=== PATIENT | female | born 1965 | race Caucasian/White ===

== ENCOUNTER 2017-07-31 09:40 | Observation (INO) ==
[~2017-07-31 09:40] MED LIST: Aminoglycoside Consult 1 EACH MC ONE
[2017-07-31 10:16] LABS: Basophils % 0.2 %; Eosinophils # 0.1 K/mcL (0.0-0.6); Eosinophils % 0.8 %; Hematocrit 46.3 % (35.3-44.9); Hemoglobin 15.2 g/dL (11.5-15.4); Immature Granulocytes % 0.5 % (0-4); Lymphocytes # 1.8 K/mcL (0.6-4.6); Lymphocytes % 20.8 %; Mean Corpuscular HGB Conc 32.8 g/dL (31.6-35.5); Mean Corpuscular Hemoglobin 29.9 pg (28.0-33.3); Mean Platelet Volume 9.5 fL (9.4-12.4); Monocytes # 0.6 K/mcL (0.0-1.3); Monocytes % 6.6 %; Platelet Count 207 K/mcL (140-400); Red Blood Count 5.09 M/mcL (3.82-4.97); Red Cell Distribution Width 13.9 % (11.5-14.5); Segmented Neutrophils % 71.1 %
[2017-07-31 10:55] LABS: Calcium 9.4 mg/dL (8.6-10.3); Carbon Dioxide 26 mEq/L (23-29); Chloride 104 mEq/L (98-107); Potassium 4.1 mEq/L (3.5-5.1); Sodium 137 mEq/L (136-145)
[2017-07-31 11:01] LABS: BUN/Creatinine Ratio 20 (6-26); Blood Urea Nitrogen 14 mg/dL (6-20); Glucose 136 mg/dL (70-105); Osmolality,Calculated 287 (280-300); eGFR For African Americans > 60 (> 60); eGFR For Non-African Americans > 60 (> 60)
--- NOTE | 2017-07-31 13:43 | Emergency Department Note ---
Disposition Clinical Impression: Costalchondritis, Cellulitis Disposition: Admitted As Inpatient Condition: Good Instructions: Angina (ED), Costochondritis (ED), Chest Wall Pain (ED), Cellulitis (ED) Referrals: Mary Jo Estrada MD [Primary Care Provider] - Forms: ED Satisfaction Letter Time of Disposition: 14:09 Chest Pain HPI - General Chief Complaint: ED Chest Pain Stated Complaint: CP,fever,"cellultitis" Time Seen by Provider: 07/31/17 12:12 Source: patient Limitations: no limitations Vital Signs Reviewed: Yes Nursing Notes Reviewed: Yes - History of Present Illness HPI Narrative: 52 yo F presents with 1 month intermittent sharp substernal chest pain and 1 day history of Panus cellulitis. Chest Pain is localized to midline between xyphoid and sternum. Pain does not radiate. Patient states that the pain happens "every once in awhile throughout the day" but nothing makes it worse or better. Patient denies SOB, dyspnea, orthopnea, PND, Extremity edema, diaphoresis or trauma to the chest. Patient states that the cellulitis on her abdomen started yesterday after she scratched it, and after a "spider bite" on the left of her abdomen. Patient admits to associated, fever, chills. Patient denies nausea, vomiting. Pt complaint: chest pain Onset (ago): month(s) (1) Duration: intermittent Onset: during rest Pain Location: substernal Severity: moderate Severity scale (1-10): 6 Quality: sharp Pain Radiation: none Improves with: nothing Worsens with: nothing Context: recent illness (states she has PNA that was treated w/ z-gerard), history of DVT/PE Associated symptoms: Reports: fever. Denies: nausea, vomiting, diaphoresis, dyspnea, sense of impending doom, syncope, palpitations, leg swelling - Related Data Home Medications Medication Instructions Recorded Confirmed Albuterol Sulfate [Albuterol 2 puff IH Q4HR PRN 09/19/16 09/19/16 Inhaler] Furosemide [Lasix] 20 mg PO DAILY 09/19/16 09/19/16 Gabapentin [Neurontin] 800 mg PO TID 09/19/16 09/19/16 GlipiZIDE [Glipizide Xl] 5 mg PO DAILY 09/19/16 09/19/16 Lisinopril [Zestril] 10 mg PO DAILY 09/19/16 09/19/16 Methocarbamol [Robaxin-750] 750 mg PO TID 09/19/16 09/19/16 OxyCODONE/APAP 5/325 [Percocet 1 each PO BID PRN 09/19/16 09/19/16 5/325 MG] Potassium Chloride [Klor-Con 10] 10 meq PO DAILY 09/19/16 09/19/16 Tramadol HCl [Ultram] 50 mg PO Q6H PRN 09/19/16 09/19/16 Allergies Allergy/AdvReac Type Severity Reaction Status Date / Time Cortisone AdvReac Vomiting Verified 07/31/17 09:46 latex AdvReac Itching Verified 07/31/17 09:46 metformin AdvReac Diarrhea Verified 07/31/17 09:46 All systems ED: reviewed and negative except as stated. Review of Systems: As Per HPI Chest Pain PMH - Past Medical History Medical history: Reports: diabetes, hypertension Surgical history: Reports: cholecystectomy, hysterectomy, LIANA/BSO Psychiatric history: Reports: no psych history - Social History Smoking Status: Current every day smoker Alcohol use: Reports: none Drug use: Reports: none Physical Exam - General Limitations: no limitations General appearance: alert, in no apparent distress - Chest Chest inspection: Present: normal inspection, symmetric chest wall rise, tenderness (midline between sternum and xiphoid) - Respiratory Respiratory exam: Present: normal lung sounds bilaterally - Cardiovascular Cardiovascular exam: Present: regular rate, normal rhythm, normal heart sounds. Absent: tachycardia, irregular rhythm, systolic murmur, diastolic murmur, rubs , gallop, clicks, JVD - Abdominal Exam Abdominal exam: Present: soft, normal bowel sounds, other (erythematous band across panus. laceration on left panus "spider bite"). Absent: tenderness, distention, guarding, rebound, Fajardo's sign, Rovsing's sign, tenderness at McBurney's Point - Neurological Exam Neurological exam: Present: alert, oriented X3 - Psychiatric Psychiatric exam: Present: normal affect, normal mood Course Course Narrative: Patient is comfortable laying in bed at this time, currently clinically and hemodynamically stable. EKG showed sinus rhythm and initial trops were negative. Patient denied active chest pain during exam. Patient started on IV vancomycin at this time, due to concerns for Oral abx's ability to penetrate into panus cellulitis. Will admit patient for IV abx. Vital Signs Temperature 98.3 F 07/31/17 09:42 Pulse Rate 101 07/31/17 09:42 Respiratory Rate 20 07/31/17 09:42 Blood Pressure 141/92 07/31/17 09:42 O2 Sat by Pulse Oximetry 95 07/31/17 09:42 Temperature 98.3 F 07/31/17 09:42 Pulse Rate 90 07/31/17 13:00 Respiratory Rate 18 07/31/17 13:00 Blood Pressure 136/87 07/31/17 13:00 O2 Sat by Pulse Oximetry 94 07/31/17 13:00 Oxygen Delivery Oxygen Delivery Room Air Chest Pain - MDM Narrative Medical decision making narrative: fevers and chills most likely from panus cellulitis. localized chest pain most likely from costochondritis (pain reproducible on palpation) vs unlikely from CAD (EKG Sinus rhythm and initial negative trop). Patient admitted for IV abx administration. - Differential Diagnosis Likely: costalchondritis, chest pain - Medical Records Medical records reviewed: Yes I reviewed the patient's medical records. - Lab Data Lab results reviewed: Yes I reviewed the patient's lab results. Result diagrams: 07/31/17 10:03 07/31/17 10:03 Lab Results 07/31/17 07/31/17 07/31/17 Range/Units 10:03 10:03 10:03 WBC 8.5 (4.3-11.1) K/mcL RBC 5.09 H (3.82-4.97) M/mcL Hgb 15.2 (11.5-15.4) g/dL Hct 46.3 H (35.3-44.9) % MCV 91.0 (83.0-100.0) fL MCH 29.9 (28.0-33.3) pg MCHC 32.8 (31.6-35.5) g/dL RDW 13.9 (11.5-14.5) % Plt Count 207 (140-400) K/mcL MPV 9.5 (9.4-12.4) fL Immature Gran % 0.5 (0-4) % Seg Neutrophils % 71.1 % Lymphocytes % 20.8 % Monocytes % 6.6 % Eosinophils % 0.8 % Basophils % 0.2 % Neutrophils # 6.0 (1.6-8.9) K/mcL Lymphocytes # 1.8 (0.6-4.6) K/mcL Monocytes # 0.6 (0.0-1.3) K/mcL Eosinophils # 0.1 (0.0-0.6) K/mcL Basophils # 0.0 (0.0-0.2) K/mcL Sodium 137 (136-145) mEq/L Potassium 4.1 (3.5-5.1) mEq/L Chloride 104 (98-107) mEq/L Carbon Dioxide 26 (23-29) mEq/L BUN 14 (6-20) mg/dL Creatinine 0.69 (0.60-1.20) mg/dL Est GFR ( Amer) > 60 (> 60) Est GFR (Non-Af Amer) > 60 (> 60) BUN/Creatinine Ratio 20 (6-26) Glucose 136 H (70-105) mg/dL Calculated Osmolality 287 (280-300) Lactic Acid 1.5 (0.5-2.2) mmol/L Calcium 9.4 (8.6-10.3) mg/dL Troponin I (< 0.04) ng/mL B-Natriuretic Peptide (Less than 100) pg/mL 07/31/17 07/31/17 Range/Units 10:03 10:03 WBC (4.3-11.1) K/mcL RBC (3.82-4.97) M/mcL Hgb (11.5-15.4) g/dL Hct (35.3-44.9) % MCV (83.0-100.0) fL MCH (28.0-33.3) pg MCHC (31.6-35.5) g/dL RDW (11.5-14.5) % Plt Count (140-400) K/mcL MPV (9.4-12.4) fL Immature Gran % (0-4) % Seg Neutrophils % % Lymphocytes % % Monocytes % % Eosinophils % % Basophils % % Neutrophils # (1.6-8.9) K/mcL Lymphocytes # (0.6-4.6) K/mcL Monocytes # (0.0-1.3) K/mcL Eosinophils # (0.0-0.6) K/mcL Basophils # (0.0-0.2) K/mcL Sodium (136-145) mEq/L Potassium (3.5-5.1) mEq/L Chloride (98-107) mEq/L Carbon Dioxide (23-29) mEq/L BUN (6-20) mg/dL Creatinine (0.60-1.20) mg/dL Est GFR ( Amer) (> 60) Est GFR (Non-Af Amer) (> 60) BUN/Creatinine Ratio (6-26) Glucose (70-105) mg/dL Calculated Osmolality (280-300) Lactic Acid (0.5-2.2) mmol/L Calcium (8.6-10.3) mg/dL Troponin I < 0.03 (< 0.04) ng/mL B-Natriuretic Peptide 15 (Less than 100) pg/mL - Radiology Data Radiology results reviewed: Yes I reviewed the patient's radiology results. - EKG Data EKG attestation: Yes I reviewed and interpreted this EKG. EKG shows normal: sinus rhythm Rate: normal Rhythm: NSR [place]/QRS: normal Heart Score - Score History: Slightly Suspicious EKG: Normal Age: 45-65 Risk Factors: Equal/Greater than 3 risk factor or history of atherosclerotic disease Troponin: 1-3x normal limit HEART Score Total: 4
--- NOTE | 2017-07-31 14:00 | Emergency Department Note ---
START Narrative - START START: I examined this patient and my medical decision-making was reviewed with the [employer]/PA/Advanced Practice Nurse/Resident Physician. I agree with the documented findings, disposition and treatment plan as described except to the extent set forth below. The patient has 2 main complaints in the first is abdominal panniculus cellulitis of that she will be started on intravenous vancomycin and admitted to the hospital. Labs reviewed. I did palpate the area and there is no crepitus or necrosis or ecchymosis or fluctuance. The second complaint is chest pain which has been going on for about one month and lasts for up to one hour at a time and she did have one hour of chest pain when I saw her today with initial troponin negative and this will be further evaluated as an inpatient. Did have some diaphoresis morning. No dyspnea. No exertional component. No pleuritic aspect or radiation to the back. Patient has been accepted for admission 1400 I did review the patient's EKG showed a sinus tachycardia with a rate of 100 without acute ischemic change. No evidence of arrhythmia. 1406 I did go back and see the patient initially was reluctant to stay and I did inform her of the importance based on the extensive cellulitis and need for intravenous IV antibiotics and we did start vancomycin as well as the chest pain which is intermittent will be further evaluated here in the hospital. 1516
[2017-07-31] MEDS ORDERED: Naloxone 0.4 MG/ML INJ IVP PRN (15:47)
[2017-07-31] MEDS ORDERED: Acetaminophen 325 MG TABLET PO PRN (15:47)
[2017-07-31] MEDS ORDERED: *HR* OxyCODONE/APAP 5/325 TABLET PO PRN (16:03)
[2017-07-31] MEDS ORDERED: *HR* Dextrose 50 % in Water (Syg) 50 ML SYRINGE IVP PRN (16:09)
[2017-07-31] MEDS ORDERED: D5% in Water 1,000 ML IVC PRN (16:09)
[2017-07-31] MEDS ORDERED: Dextrose Gel 15 GM/37.5 ML TUBE PO PRN ×2 (16:09)
[2017-07-31] MEDS ORDERED: GuaiFENesin/Dextromethorphan TABLET PO PRN (16:11)
[2017-07-31] MEDS ORDERED: Ipratropium/Albuterol Neb 3 ML IH PRN (16:12)
[2017-07-31] MEDS ORDERED: Aspirin Enteric Coated 325 MG Tablet PO STA (16:15)
[2017-07-31] MEDS ORDERED: Nicotine 14 MG PATCH.TD24 TD SCH (16:15)
[2017-07-31] MEDS ORDERED: Nitroglycerin 0.4 MG TAB.SUBL SL PRN (16:16)
--- NOTE | 2017-07-31 16:20 | Internal Med History&Physical ---
<GuanacoarianKwesi - Last Filed: 07/31/17 21:44> Date of Encounter: 07/31/17 Internal Medicine - H&P: HPI History of present illness: Ms. Cabrera is a 52 year old female Internal Medicine - H&P: Meds Gabapentin [Neurontin] 800 mg PO TID 09/19/16 [History] GlipiZIDE [Glipizide Xl] 5 mg PO DAILY 09/19/16 [History] Lisinopril [Zestril] 10 mg PO DAILY 09/19/16 [History] OxyCODONE/APAP 5/325 [Percocet 5/325 MG] 1 each PO BID PRN 09/19/16 [History] Cyclobenzaprine [Flexeril] 10 mg PO TID 07/31/17 [History] Spironolactone [Aldactone] 25 mg PO BID 07/31/17 [History] 3 Allergy/AdvReac Type Severity Reaction Status Date / Time Cortisone AdvReac Vomiting Verified 07/31/17 09:46 latex AdvReac Itching Verified 07/31/17 09:46 metformin AdvReac Diarrhea Verified 07/31/17 09:46 All Systems PM: A 10-system review of systems was performed and is negative for pertinent findings except as documented above in the HPI. - Constitutional Vitals: Temp Pulse Resp BP Pulse Ox 98.7 F 87 18 139/73 94 07/31/17 19:08 07/31/17 19:08 07/31/17 19:08 07/31/17 19:08 07/31/17 19:08 Internal Med - H&P Results - Labs CBC & Chem 7: 07/31/17 10:03 07/31/17 10:03 Labs: Cardiac Enzymes 07/31/17 Range/Units 17:54 Troponin I < 0.03 (< 0.04) ng/mL - Impressions ITS Impressions Abdomen/Pelvis CT 07/31/17 17:30 IMPRESSION: No soft tissue gas, fluid or abscess associated with the cellulitis. D/ / Adelso Bueno MD / Adelso Bueno MD Interpreting Provider: Adelso Bueno MD - Attending Attestation I have personally performed a face to face evaluation on this patient. I have reviewed and agree with the care plan. History and Exam by me shows: Patient presented with chest pain. On exam heart is regular is on S2. Lungs are clear. There is lower abdominal panniculitis and some dried up scabbed wounds. Plan: Transient troponin. Telemetry. Echocardiogram and stress test in the morning. IV vancomycin for panniculitis. Kwesi Granger MD <Jose M Sheridan - Last Filed: 07/31/17 21:51> Date of Encounter: 07/31/17 Time of Encounter: 15:00 Assessment and Plan (1) Chest pain Current visit: Yes Status: Acute Acute on chronic chest pain for the past month. Patient reports intermittent chest pain at rest and with exertion without alleviating or aggravating factors. Describes pain is centralized squeezing and chest with radiation to left arm. Patient had recent diagnosis 2 weeks of pneumonia and has residual cough. Completed OP therapy. Denies history of cardiac testing or issues. Hx of CAD in mother. Initial troponin <0.03. Trend x2. Echocardiogram ordered. Cardiac diet. Nothing by mouth at midnight for a.m. pharmacologic stress test. Will consider cardiology consult if echocardiogram, troponins, stress test results abnormal. Nitroglycerin when necessary. 80 mg Lipitor PO now. 325 mg aspirin now followed by 81 mg daily. Pt. instructed to take 81 mg EC aspirin daily post-discharge. EKG shows sinus tachycardia with low QRS voltage in precordial leads. CXR unremarkable. Supplemental O2 and SpO2 monitoring PRN. Falls/safety. Pt. discussed w/Dr. Granger who is in agreement w/plan of care. Pt. is high risk for further morbidity and cardiac event based on hx of chest pain for 1 month, family hx of CAD, current pannus cellulitis requiring IV abx, hx, and risk factors of HTN and current tobacco abuse. Inpatient. Qualifiers: Chest pain type: other chest pain Qualified Code(s): R07.89 - Other chest pain; R07.8 - Other chest pain (2) Cellulitis Current visit: Yes Status: Acute Acute pannus cellulitis for the past several days. Pt. states she changed detergents then noticed itching. Closed scab near umbilicus from scratching. Lower abdomen is erythematous, edematous, and warm. Blood cultures [address] of abd/pel w/o contrast to assess for fluid/gas. IVPB vancomycin administered ED and will continue with pharmacy dosing. We will consider adjusting abx coverage based on culture results. Pt. is currently afebrile and does not meet sepsis criteria on exam. Monitor pt. and f/u labs closely for signs of increasing infection. Qualifiers: Site of cellulitis: trunk Site of cellulitis of trunk: abdominal wall Qualified Code(s): L03.311 - Cellulitis of abdominal wall (3) Dizziness Current visit: Yes Status: Acute Acute dizziness over the past few days. Bilateral carotid Doppler duplex imaging ordered. Falls/safety precautions. Supplemental O2 w/titration and SpO2 monitoring PRN. (4) HTN (hypertension) Current visit: Yes Status: Chronic Hx of chronic HTN. Monitor pt. and VS. Continue pts. lisinopril and spironolactone. Qualifiers: Hypertension type: essential hypertension Qualified Code(s): I10 - Essential (primary) hypertension (5) Lumbar radicular pain Current visit: Yes Status: Chronic Hx of chronic lumbar radicular pain. Continue pts. Percocet and Flexeril for pain mgmt. Falls/safety precautions. (6) Diabetes Current visit: Yes Status: Chronic Hx of diabetes controlled with oral antihyperglycemic medications. Will hold patient's oral medication and administer low-dose correction insulin sliding scale and hypoglycemic protocol when necessary. The BG checks before meals at bedtime. A1c in a.m. labs. Qualifiers: Diabetes mellitus type: type 2 Diabetes mellitus complication status: with unspecified complications Diabetes mellitus care home insulin use: without intermediate school teacher use Qualified Code(s): E11.8 - Type 2 diabetes mellitus with unspecified complications (7) DVT prophylaxis Current visit: Yes Status: Acute Lovenox 40 mg 0600 for DVT prophylaxis. Monitor pt. for signs of bleeding. Internal Medicine - H&P: HPI Chief complaint: Chest pain/Fever/Cellulitis Admitted From: Emergency Dept Plans for Post Hospital Care: Home History of present illness: Ms. Cabrera is a 52 year old female with medical hx of diabetes controlled with oral antihyperglycemic medications and hypertension presents from the ED with chief complaint of chest pain for the past month it has been intermittent and worsened over the past week. Patient describes pain is centralized and chest with a squeezing sensation that occurs at rest and with exertion with radiation to left arm accompanied by diaphoresis. No alleviating or aggravating factors. Pt. reports she was dx w/pneumonia 2 weeks ago and completed OP tx. Residual cough. Also reports pannus cellulitis over the past several days on lower abdomen, dizziness, and fever. Pt. denies nausea, vomiting, chills, headache, changes in vision, palpitations, chest congestion, abdominal pain, diarrhea, constipation, pre-syncope, or syncope. Past Med Surg Social Fam HX - Past Medical History Source: patient, old records reviewed, obtained from family Medical history: diabetes (Controlled with oral anti-hyperglycemic medications.) , hypertension Psychiatric history: no psych history - Past Surgical History Surgical History: cholecystectomy, hysterectomy, LIANA/BSO - Social History Smoking Status: Current every day smoker Packs per day: 1 PPD Smokeless Tobacco Status: No Alcohol use: none Drug use: none Current living situation: Home, With Family Activity Level: Independent ambulation Recent Out of Country Travel Within the Last 8 Weeks: No Exposure or Possible Exposure to Illness During Travel: No - Family History Father History Unknown: Yes Race: Family Member Ethnicity: Non- Mother Race: Family Member Ethnicity: Non- Living Status: Still Living Hx Family Cardiac Disorders: Yes (CAD) Hx Family Cancer: Yes (Breast) Brother Race: Family Member Ethnicity: Non- Living Status: Still Living Hx Family Cardiac Disorders: Yes (Brain aneurysm) Hx Family Respiratory Disorders: Yes (COPD) All Systems PM: A 10-system review of systems was performed and is negative for pertinent findings except as documented above in the HPI. - Constitutional Constitutional: no chills, no fever(s), no night sweats - EENT Eyes: no change in vision, no discharge, no pain, no photophobia Ears: no ear discharge, no ear pain, no tinnitus Nose, mouth and throat: no dysphagia, no nasal discharge, no neck pain, no sore throat - Breasts Breasts: as per HPI - Cardiovascular Cardiovascular ROS IM: as per HPI, chest pain, edema (Chronic bilateral edema of LEs), no diaphoresis, no dyspnea, no lightheadedness, no palpitations, no syncope - Respiratory Respiratory: as per HPI, cough, no dyspnea, no wheezing, no excessive phlegm production - Gastrointestinal Gastrointestinal: no abdominal pain, no diarrhea, no hematemesis, no hematochezia, no melena, no nausea, no vomiting - Genitourinary Genitourinary: no change in urinary stream, no dysuria, no flank pain, no hematuria Menstruation: as per HPI - Musculoskeletal Musculoskeletal ROS IM: no numbness, no tingling - Integumentary Integumentary IM: as per HPI, erythema (Across lower abdomen), no rash, no unusual bruising - Neurological Neurological ROS: no confusion, no convulsions, no focal weakness, no numbness, no tingling, no tremor(s) - Psychiatric Psychiatric: as per HPI - Endocrine Endocrine IM: as per HPI - Hematologic/Lymphatic Hematologic/Lymphatic: no easy bruising - Allergic/Immunologic Allergic/Immunologic: as per HPI - Constitutional Vitals: Temp Pulse Resp BP Pulse Ox 98.3 F 95 18 136/87 93 07/31/17 09:42 07/31/17 15:27 07/31/17 15:27 07/31/17 13:00 07/31/17 15:27 General appearance: Present: cooperative, A&O X 3, morbidly obese, pleasant, no acute distress, answers questions appropriately - Head Head exam: Present: atraumatic, normocephalic - Eye Eye exam: Present: PERRL, conjuntiva pink, sclera anicteric Pupils: Present: PERRL - ENT ENT exam: Present: normal exam - Neck Neck exam general surgery: Present: normal inspection, supple, trachea midline. Absent: lymphadenopathy - Respiratory Respiratory exam: Present: CTAB. Absent: accessory muscle use, rales, rhonchi, wheezes - Cardiovascular Cardiovascular exam: Present: +S1, +S2, tachycardia. Absent: diastolic murmur, gallop, rubs, systolic murmur - GI/Abdominal GI/Abdominal exam: Present: normal bowel sounds, soft, no peritoneal signs. Absent: distended, tenderness - Rectal Rectal exam: Present: deferred - Additional comments: exam deferred. - Extremities Exam Extremities exam: Present: pedal edema (Bilateral pedal edema pt. states is chronic), warm, radial pulses palpable and symmetrical. Absent: calf tenderness , cyanotic - Back Exam Back exam: Present: normal inspection - Neurological Exam Neurological exam: Present: CN II-XII intact, oriented X3, no focal deficits. Absent: pronater drift, facial droop, speech deficit - Psychiatric Psychiatric exam: Present: normal affect, normal mood - Skin Skin exam: Present: dry, erythema (Across lower abdomen d/t pannus cellulitis), intact Internal Med - H&P Results - Labs CBC & Chem 7: 07/31/17 10:03 07/31/17 10:03 - EKG Data EKG shows normal: sinus rhythm Rate: tachycardia - EKG Data Prior EKG available for review: yes EKG comments: 07/31/17 16:36 EKG dated 08/05/16 shows sinus rhythm and low QRS voltage in precordial leads, nonspecific T-wave abnormality. EKG dated 07/31/17 shows sinus tachycardia with low QRS voltage in precordial leads. - Diagnostic Studies Chest x-ray Additional comments: Impressions Chest X-Ray 07/31/17 09:46 IMPRESSION: No acute cardiopulmonary process. D/ / Damaso Aviles MD / Damaso Aviles MD Interpreting Provider: Damaso Aviles MD
[2017-07-31 18:49] LABS: Thyroid Stimulating Hormone 0.907 mcIU/mL (0.340-5.600)
[2017-07-31] MEDS: Insulin LISPRO 300 UNITS/3 ML VIAL SQ SCH (19:42)
[2017-07-31] MEDS ORDERED: Perflutren Lipid Microsphere 1.3 ML in 0.9 % Sodium Chloride 8.7 ML IVP ONE (20:45)
[2017-07-31] MEDS ORDERED: Perflutren Lipid Microsphere 2 ML VIAL ONE (20:48)
[2017-07-31] MEDS ORDERED: Insulin LISPRO 300 UNITS/3 ML VIAL SQ SCH (21:00)
[2017-07-31] MEDS ORDERED: Spironolactone 25 MG TABLET PO SCH (21:00)
[2017-07-31] MEDS: Gabapentin 400 MG CAPSULE PO SCH (21:55)
[2017-08-01 04:11] LABS: Basophils % 0.3 %; Eosinophils # 0.1 K/mcL (0.0-0.6); Eosinophils % 1.8 %; Hemoglobin 13.7 g/dL (11.5-15.4); Immature Granulocytes % 0.5 % (0-4); Lymphocytes # 1.6 K/mcL (0.6-4.6); Lymphocytes % 22.2 %; Mean Corpuscular HGB Conc 31.9 g/dL (31.6-35.5); Mean Corpuscular Hemoglobin 29.1 pg (28.0-33.3); Mean Corpuscular Volume 91.5 fL (83.0-100.0); Mean Platelet Volume 9.9 fL (9.4-12.4); Monocytes # 0.5 K/mcL (0.0-1.3); Monocytes % 7.3 %; Platelet Count 194 K/mcL (140-400); Segmented Neutrophils % 67.9 %
[2017-08-01 04:16] LABS: Hemoglobin A1C 7.1 %
[2017-08-01 04:53] LABS: Alanine Aminotransferase 17 Units/L (7-52); Albumin 3.6 g/dL (3.5-5.7); Albumin/Globulin Ratio 1.3 (1.1-2.2); Alkaline Phosphatase 61 Units/L (34-104); Aspartate Amino Transferase 14 Units/L (13-39); BUN/Creatinine Ratio 21 (6-26); Bilirubin,Total 0.5 mg/dL (0.3-1.0); Blood Urea Nitrogen 12 mg/dL (6-20); Calcium 8.8 mg/dL (8.6-10.3); Carbon Dioxide 27 mEq/L (23-29); Chloride 105 mEq/L (98-107); Chol/HDL Ratio 4.8 (0-4.9); Cholesterol 152 mg/dL (< 200); Globulin 2.7 g/dL (2.4-3.5); Glucose 128 mg/dL (70-105); HDL Cholesterol 32 mg/dL (40-59); LDL Cholesterol,Calculated 80 mg/dL (0-99); Magnesium 2.2 mg/dL (1.6-2.6); Osmolality,Calculated 289 (280-300); Potassium 3.9 mEq/L (3.5-5.1); Sodium 139 mEq/L (136-145); Total Protein 6.3 g/dL (6.4-8.9); Triglycerides 199 mg/dL (< 150); eGFR For African Americans > 60 (> 60); eGFR For Non-African Americans > 60 (> 60)
[2017-08-01] MEDS ORDERED: *HR* Enoxaparin 40 MG/0.4 ML SYRINGE SQ SCH (06:00)
[2017-08-01] MEDS ORDERED: Regadenoson 0.4 MG/5 ML SYRINGE IVP ONE (06:25)
[2017-08-01] MEDS: Gabapentin 400 MG CAPSULE PO SCH (07:26)
[2017-08-01] MEDS: Insulin LISPRO 300 UNITS/3 ML VIAL SQ SCH (07:26)
[2017-08-01 08:10] VITALS: BP 132/87
--- NOTE | 2017-08-01 08:53 | Discharge Summary ---
Date of Encounter: 08/01/17 Time of Encounter: 08:51 - Discharge Diagnosis (1) Lumbar radicular pain Priority: Secondary Status: Chronic Comments: Chronic we will continue home medication (2) Cellulitis Priority: Secondary Status: Acute Comments: Cellulitis on her lower abdomen patient does not want to stay in the hospital she wants to be discharged on by mouth antibiotic I will place her on Levaquin for 10 days she says she had it before and she was treated with Bactrim as an outpatient and resolved she will follow up with her primary physician Qualifiers: Site of cellulitis: trunk Site of cellulitis of trunk: abdominal wall Qualified Code(s): L03.311 - Cellulitis of abdominal wall (3) HTN (hypertension) Priority: Secondary Status: Chronic Comments: Chronic and well controlled Qualifiers: Hypertension type: essential hypertension Qualified Code(s): I10 - Essential (primary) hypertension (4) Chest pain Priority: Primary Status: Acute Comments: Chest pain has resolved troponin is negative BNP normal patient is scheduled for nuclear stress test she does not want to wait to have to possibly nuclear stress test she preferred to go home and call and arrange for outpatient cardiology follow-up patient is employed here and says she can take care of the arrangement Qualifiers: Chest pain type: other chest pain Qualified Code(s): R07.89 - Other chest pain; R07.8 - Other chest pain (5) Diabetes Priority: Secondary Status: Chronic Comments: Chronic we will continue home medication discharge Qualifiers: Diabetes mellitus type: type 2 Diabetes mellitus complication status: with unspecified complications Diabetes mellitus assisted insulin use: without termite exterminator helper use Qualified Code(s): E11.8 - Type 2 diabetes mellitus with unspecified complications - Discharge Medications Prescriptions: Levofloxacin [Levaquin] 750 mg PO DAILY #10 tablet Home Medications: Gabapentin [Neurontin] 800 mg PO TID 09/19/16 [History] GlipiZIDE [Glipizide Xl] 5 mg PO DAILY 09/19/16 [History] Lisinopril [Zestril] 10 mg PO DAILY 09/19/16 [History] OxyCODONE/APAP 5/325 [Percocet 5/325 MG] 1 each PO BID PRN 09/19/16 [History] Cyclobenzaprine [Flexeril] 10 mg PO TID 07/31/17 [History] Spironolactone [Aldactone] 25 mg PO BID 07/31/17 [History] Levofloxacin [Levaquin] 750 mg PO DAILY #10 tablet 08/01/17 [Rx] Allergies/Adverse Reactions: 3 Allergy/AdvReac Type Severity Reaction Status Date / Time Cortisone AdvReac Vomiting Verified 07/31/17 09:46 latex AdvReac Itching Verified 07/31/17 09:46 metformin AdvReac Diarrhea Verified 07/31/17 09:46 Date of admission: 07/31/17 17:26 Primary care physician: Mary Jo Estrada MD Discharging clinician: Sravanthi Saldivar Anticipated date of discharge: 08/01/17 - Patient Status Disposition: Home, Self-Care Functional capacity at discharge: independent ambulation Overall status at discharge: patient is back to baseline - Discharge Instructions - Diet and Activity Activity: other Diet: advance to your usual diet Interval History: Patient with history of diabetes hypertension obesity admitted with recurrent chest pain for about a month both at rest and with exertion EKG is normal troponin profiles are all normal patient was scheduled for nuclear stress that she decided she wanted to be discharged 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 Cabrera is a 52 year old female - Time Spent with Patient Total time spent providing and/or coordinating discharge services: Less than 30 minutes - Constitutional Vitals: Temp Pulse Resp BP Pulse Ox 98.3 F 79 22 132/87 97 08/01/17 08:04 08/01/17 08:04 08/01/17 08:04 08/01/17 08:04 08/01/17 08:04 General appearance: Present: cooperative, A&O X 3, morbidly obese, pleasant, no acute distress, answers questions appropriately
[2017-08-01] MEDS ORDERED: Aspirin Enteric Coated 81 MG Tablet PO SCH (09:00)
--- NOTE | 2017-08-02 08:38 | Electrocardiograph Report ---
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
== END 2017-08-01 09:15 | disposition home or self-care (01) | DRG 313 ==
LOC: EMEROO 09:40 → 3ANU 09:40
PROVIDERS: ADMIT Nurse Practitioner Family; ATTEND Internal Medicine

== ENCOUNTER 2018-02-08 21:41 | Inpatient (IN) ==
[2018-02-08] MEDS ORDERED: methylPREDNISolone 125 MG/2 ML VIAL IVP ONE (21:55)
[2018-02-08] MEDS ORDERED: Ipratropium/Albuterol Neb 3 ML IH ONE (21:55)
[2018-02-08] MEDS ORDERED: 0.9 % Sodium Chloride 1,000 ML IVC ONE (21:55)
[2018-02-08] MEDS ORDERED: Isovue-370 500 ML INFUS..BTL IV ONE (22:33)
[2018-02-08 22:38] LABS: Basophils % 0.2 %; Eosinophils # 0.1 K/mcL (0.0-0.6); Hematocrit 48.2 % (35.3-44.9); Hemoglobin 15.8 g/dL (11.5-15.4); Immature Granulocytes % 0.5 % (0-4); Mean Corpuscular HGB Conc 32.8 g/dL (31.6-35.5); Mean Corpuscular Hemoglobin 29.8 pg (28.0-33.3); Mean Corpuscular Volume 90.9 fL (83.0-100.0); Mean Platelet Volume 9.8 fL (9.4-12.4); Monocytes # 0.7 K/mcL (0.0-1.3); Monocytes % 6.6 %; Neutrophils # 8.2 K/mcL (1.6-8.9); Platelet Count 196 K/mcL (140-400); Red Cell Distribution Width 14.4 % (11.5-14.5); Segmented Neutrophils % 81.7 %
[2018-02-08 22:41] LABS: VBG HCO3 30 mEq/L (21-27); VBG PCO2 52 mmHg (41-51); VBG PH 7.37 pH Units (7.32-7.42); VBG PO2 74 mmHg (25-50)
[2018-02-08 23:48] LABS: BUN/Creatinine Ratio 16 (6-26); Blood Urea Nitrogen 13 mg/dL (6-20); Carbon Dioxide 28 mEq/L (23-29); Chloride 100 mEq/L (98-107); Glucose 207 mg/dL (70-105); Osmolality,Calculated 286 (280-300); Potassium 3.9 mEq/L (3.5-5.1); Sodium 135 mEq/L (136-145); Troponin I < 0.03 ng/mL (< 0.04); eGFR For Non-African Americans > 60 (> 60)
[2018-02-09] MEDS ORDERED: Levofloxacin 750 MG/150 ML 750 MG/150 ML BAG IVPB ONE (01:05)
--- NOTE | 2018-02-09 01:06 | Emergency Department Note ---
Disposition Clinical Impression: Acute exacerbation of chronic obstructive airways disease, Hypoxemia, Acute hypoxemic respiratory failure Disposition: Admitted As Inpatient Condition: Fair Time of Disposition: 01:06 SOB HPI - General Chief Complaint: ED Shortness of Breath/Dyspnea Stated Complaint: diagnosed with pneumonia today Time Seen by Provider: 02/08/18 21:54 Source: patient Limitations: no limitations Nursing Notes Reviewed: Yes Vital Signs Reviewed: Yes - History of Present Illness Patient is a 52-year-old female who presents to [facility] ED with a chief complaint of difficulty breathing. States her symptoms started 2 days ago. She was seen by a primary care physician earlier today and diagnosed with pneumonia. States she was started on antibiotics but she had not gone to the pharmacy yet. When she presented to triage, she was saturating 76% on room air. We were told by nursing immediately and I went to evaluate the patient bedside. Patient had decreased aeration throughout her lungs. She was saturating 88% on 5 L. I called respiratory therapy immediately and ordered a triple DuoNeb as well as BiPAP to be brought to the bedside. Patient states she has had subjective fevers at home. She has been coughing up yellow sputum at home. Patient admits to being a daily smoker. Pt Subjective Complaint: shortness of breath Onset (ago): day(s) Context: recent illness Severity: moderate Consistency/Duration: gradually worsening Improves with: nothing Worsens with: exertion Associated symptoms: Reports: fever, cough, sputum production. Denies: chest pain, nausea/vomiting, abdominal pain Treatment prior to arrival: none Cough present: Yes Cough Description: Involuntary Cough Frequency: Intermittent Sputum production: Yes Sputum Amount: Moderate Sputum Color: Yellow - Related Data Home oxygen amount: none Home Medications Medication Instructions Recorded Confirmed Gabapentin [Neurontin] 800 mg PO TID 09/19/16 08/14/17 Lisinopril [Zestril] 10 mg PO BID 09/19/16 08/14/17 OxyCODONE/APAP 5/325 [Percocet 1 each PO BID PRN 09/19/16 08/14/17 5/325 MG] Cyclobenzaprine [Flexeril] 10 mg PO TID 07/31/17 08/14/17 Spironolactone [Aldactone] 25 mg PO BID 07/31/17 08/14/17 Allergies Allergy/AdvReac Type Severity Reaction Status Date / Time atorvastatin [From Lipitor] AdvReac Muscle Pain Verified 08/15/17 13:44 Cortisone AdvReac Vomiting Verified 07/31/17 09:46 latex AdvReac Itching Verified 07/31/17 09:46 metformin AdvReac Diarrhea Verified 07/31/17 09:46 vancomycin AdvReac Itching Verified 08/17/17 11:23 All systems ED: reviewed and negative except as stated. Past Medical History - Past Medical History Attestation: Yes The following information was validated with the patient. Source: patient Medical history: Reports: diabetes, hyperlipidemia, hypertension, other Surgical history: Reports: cholecystectomy, hysterectomy, LIANA/BSO Psychiatric history: Reports: no psych history - Social History Smoking Status: Heavy tobacco smoker Smokeless Tobacco Status: No Alcohol use: Reports: none Drug use: Reports: none Physical Exam - General Limitations: no limitations General appearance: alert, in no apparent distress, in distress, obese - Head Head exam: atraumatic, normocephalic, normal inspection - Eye Eye exam: Present: EOMI - ENT ENT exam: normal exam, normal oropharynx, mucous membranes moist - Neck Neck exam: Present: normal inspection, full ROM, trachea midline - Chest Chest inspection: Present: normal inspection, symmetric chest wall rise - Respiratory Respiratory exam: Present: other (Decreased breath sounds throughout all lung medrano) - Cardiovascular Cardiovascular exam: Present: normal rhythm, tachycardia - Abdominal Exam Abdominal exam: Present: soft, Non-Tender. Absent: tenderness, distention, guarding, rebound, rigidity - Extremities Exam Extremities exam: Present: normal inspection, full ROM. Absent: tenderness, pedal edema - Neurological Exam Neurological exam: Present: alert, oriented X3 - Psychiatric Psychiatric exam: Present: normal affect, normal mood - Skin Skin exam: Present: warm, dry, intact, normal color Course Course Narrative: Patient seen and examined. Upon my initial evaluation of the patient, patient does look mildly distressed. She is tachypneic and hypoxemic. She is not normally on any home oxygen. Lab work, EKG, chest x-ray, lactic acid, triple DuoNeb, Solu-Medrol ordered. Even the patient denies history of COPD, she is a smoker and has COPD listed as one of her active problems. - Reevaluation(s) Reevaluation #1: Patient reassessed. She is aerating better and her oxygen saturations are in the mid 90s. Feels more comfortable on the BiPAP. Patient's lab work does show some respiratory acidosis with hypercarbia. Patient's chest x-ray was negative for any acute abnormalities. A CTA was ordered to rule out pulmonary embolus. CTA of the chest was negative for pulmonary embolus. Since patient has some signs of COPD, we will treat as a COPD exacerbation and cover her for possible pneumonia. A dose of IV Levaquin was ordered. I discussed with the hospitalist who has accepted patient for admission. He would like a set of blood cultures ordered. Time: 02:01 Vital Signs Temperature 99.4 F 02/08/18 21:45 Pulse Rate 111 02/08/18 21:45 Respiratory Rate 25 02/08/18 21:45 Blood Pressure 132/81 02/08/18 21:45 O2 Sat by Pulse Oximetry 77 02/08/18 21:45 Temperature 99.4 F 02/08/18 21:56 Pulse Rate 100 02/09/18 00:39 Respiratory Rate 20 02/09/18 00:42 Blood Pressure 142/73 02/09/18 00:39 O2 Sat by Pulse Oximetry 92 02/09/18 00:42 Oxygen Delivery Oxygen Delivery Bipap Shortness of Breath/Dyspnea - Medical Records Medical records reviewed: Yes I reviewed the patient's medical records. - Lab Data Lab results reviewed: Yes I reviewed the patient's lab results. Result diagrams: 02/08/18 21:55 02/08/18 21:55 Lab Results 02/08/18 02/08/18 02/08/18 Range/Units 21:55 21:55 21:55 WBC 10.1 (4.3-11.1) K/mcL RBC 5.30 H (3.82-4.97) M/mcL Hgb 15.8 H (11.5-15.4) g/dL Hct 48.2 H (35.3-44.9) % MCV 90.9 (83.0-100.0) fL MCH 29.8 (28.0-33.3) pg MCHC 32.8 (31.6-35.5) g/dL RDW 14.4 (11.5-14.5) % Plt Count 196 (140-400) K/mcL MPV 9.8 (9.4-12.4) fL Immature Gran % 0.5 (0-4) % Seg Neutrophils % 81.7 % Lymphocytes % 10.0 % Monocytes % 6.6 % Eosinophils % 1.0 % Basophils % 0.2 % Neutrophils # 8.2 (1.6-8.9) K/mcL Lymphocytes # 1.0 (0.6-4.6) K/mcL Monocytes # 0.7 (0.0-1.3) K/mcL Eosinophils # 0.1 (0.0-0.6) K/mcL Basophils # 0.0 (0.0-0.2) K/mcL VBG pH (7.32-7.42) pH Units VBG pCO2 (41-51) mmHg VBG pO2 (25-50) mmHg VBG HCO3 (21-27) mEq/L Sodium 135 L (136-145) mEq/L Potassium 3.9 (3.5-5.1) mEq/L Chloride 100 (98-107) mEq/L Carbon Dioxide 28 (23-29) mEq/L BUN 13 (6-20) mg/dL Creatinine 0.81 (0.60-1.20) mg/dL Est GFR ( Amer) > 60 (> 60) Est GFR (Non-Af Amer) > 60 (> 60) BUN/Creatinine Ratio 16 (6-26) Glucose 207 H (70-105) mg/dL Calculated Osmolality 286 (280-300) Lactic Acid (0.5-2.2) mmol/L Calcium 9.0 (8.6-10.3) mg/dL Troponin I < 0.03 (< 0.04) ng/mL B-Natriuretic Peptide 18 (Less than 100) pg/mL 02/08/18 02/08/18 Range/Units 22:16 22:38 WBC (4.3-11.1) K/mcL RBC (3.82-4.97) M/mcL Hgb (11.5-15.4) g/dL Hct (35.3-44.9) % MCV (83.0-100.0) fL MCH (28.0-33.3) pg MCHC (31.6-35.5) g/dL RDW (11.5-14.5) % Plt Count (140-400) K/mcL MPV (9.4-12.4) fL Immature Gran % (0-4) % Seg Neutrophils % % Lymphocytes % % Monocytes % % Eosinophils % % Basophils % % Neutrophils # (1.6-8.9) K/mcL Lymphocytes # (0.6-4.6) K/mcL Monocytes # (0.0-1.3) K/mcL Eosinophils # (0.0-0.6) K/mcL Basophils # (0.0-0.2) K/mcL VBG pH 7.37 (7.32-7.42) pH Units VBG pCO2 52 H (41-51) mmHg VBG pO2 74 H (25-50) mmHg VBG HCO3 30 H (21-27) mEq/L Sodium (136-145) mEq/L Potassium (3.5-5.1) mEq/L Chloride (98-107) mEq/L Carbon Dioxide (23-29) mEq/L BUN (6-20) mg/dL Creatinine (0.60-1.20) mg/dL Est GFR ( Amer) (> 60) Est GFR (Non-Af Amer) (> 60) BUN/Creatinine Ratio (6-26) Glucose (70-105) mg/dL Calculated Osmolality (280-300) Lactic Acid 1.1 (0.5-2.2) mmol/L Calcium (8.6-10.3) mg/dL Troponin I (< 0.04) ng/mL B-Natriuretic Peptide (Less than 100) pg/mL - Radiology Data Radiology results reviewed: Yes I reviewed the patient's radiology results. Chest X-Ray 02/08/18 21:55 IMPRESSION: No acute cardiopulmonary disease is identified. D/ / Derik Collado MD / Derik Collado MD Interpreting Provider: Derik Collado MD Chest CTA 02/09/18 22:33 IMPRESSION: Negative for acute pulmonary embolism. Fluctuating upper lobe predominant peribronchovascular ground-glass opacities dating back through at least 2012. Differential considerations include pneumonia-including atypical and viral processes, respiratory bronchiolitis in a smoker, drug reaction, atypical pulmonary edema and less likely hemorrhage. Mild diffuse airway inflammation may be seen with asthma, bronchitis or smoking. Hepatic steatosis. D/ / Imer Lara / Imer Lara Interpreting Provider: Imer Lara - EKG Data EKG attestation: Yes I reviewed and interpreted this EKG. EKG results narrative: EKG done at 2155 shows sinus tachycardia with a rate of [address] elevation or depression noted. Normal axis. No prior EKG for comparison. Critical Care Time Critical Care Time: Yes Total Critical Care Time: 35 Attestation: Pt w/ hypoxia and required supportive respiratory care; Attestation Statement - Attestation Attestation: Dr Petersen note: Pt seen in conjunction w/resident Dr Gross; Please see her charting for complete docuentation; I agree w/ pt's treatment and disposition and spent face to face time w/ the pt; Urine results pending at this time ; pt's hypoxia and respiratory status improved prior to admission; x ray and CT scan show no acute/ focal pulmonary process; labs reviewed; will require admission for supportive care and oxygenation;
[2018-02-09 03:54] LABS: Bilirubin,Urine Negative (Negative); Blood,Urine Negative (Negative); Clarity,Urine Clear (Clear); Color,Urine Yellow (Yellow); Glucose,Urine (UA) 100 mg/dL (Normal); Ketones,Urine Negative (Negative); Leukocyte Esterase,Urine Negative (Negative); Nitrite,Urine Negative (Negative); Protein,Urine Negative (Neg-Trace); Specific Gravity,Urine > 1.030 (1.010-1.025); Urobilinogen,Urine Normal (Normal)
[2018-02-09] MEDS ORDERED: Acetaminophen 325 MG TABLET PO PRN ×2 (04:09→07:34)
[2018-02-09] MEDS ORDERED: Dextrose Gel 15 GM/37.5 ML TUBE PO PRN ×2 (04:17)
[2018-02-09] MEDS ORDERED: *HR* Dextrose 50 % in Water (Syg) 50 ML SYRINGE IVP PRN (04:17)
[2018-02-09] MEDS ORDERED: D5% in Water 1,000 ML IVC PRN (04:17)
[2018-02-09] MEDS ORDERED: Naloxone 0.4 MG/ML INJ IVP PRN (07:34)
[2018-02-09] MEDS ORDERED: Ipratropium/Albuterol Neb 3 ML ONE (08:03)
[2018-02-09] MEDS: Ipratropium/Albuterol Neb 3 ML IH SCH ×5 (08:04→23:51)
[2018-02-09] MEDS: Budesonide/Formoterol 160/4.5 1 PUFF INH IH SCH ×2 (08:04→19:50)
[2018-02-09] MEDS: Insulin LISPRO 300 UNITS/3 ML VIAL SQ SCH ×4 (09:30→21:57)
[2018-02-09] MEDS: methylPREDNISolone 125 MG/2 ML VIAL IVP SCH ×2 (11:55→17:45)
[2018-02-09] MEDS ORDERED: *HR* OxyCODONE/APAP 5/325 TABLET PO PRN (13:01)
[2018-02-09] MEDS ORDERED: traMADol 50 MG TABLET PO PRN (13:01)
[2018-02-09] MEDS: Gabapentin 400 MG CAPSULE PO SCH ×2 (15:20→21:55)
[2018-02-09] MEDS: *HR* OxyCODONE/APAP 5/325 TABLET PO PRN (15:20)
--- NOTE | 2018-02-09 17:05 | Internal Med History&Physical ---
Date of Encounter: 02/09/18 Time of Encounter: 13:00 Internal Medicine - H&P: HPI Chief complaint: Shortness of breath, difficulty breathing History of present illness: Ms. Cabrera is a 52 year old female with pmh of COPD, tobacco abuse , chronic back pain presenting with complaints of shortness of breath and decreased exercise tolerance starting since thursday. Symptoms have been accompanied with a worsened cough which has been productive of yellow phlegm. She also complained of subjective fevers and chills. Symptoms have been getting progressively worse since thursday and she went to her PCP yesterday who noted she was hypoxic and recommended she come to the ER. In the ER, she was noted to be saturating at 76% on room air. She had a CT angio chest done which came back negative for PE. She was started on BiPAP, nebs , steroids and antibiotics for further management. Past Med Surg Social Fam HX - Past Medical History Medical history: diabetes, hyperlipidemia, hypertension, other Additional medical history: Shingles, IBS Psychiatric history: no psych history - Past Surgical History Surgical History: cholecystectomy, hysterectomy, LIANA/BSO Additional surgical history: neurostimulator placement - Social History Smoking Status: Heavy tobacco smoker Smokeless Tobacco Status: No Alcohol use: none Drug use: none - Family History Father History Unknown: Yes Family Member Ethnicity: Non- Mother Family Member Ethnicity: Non- Living Status: Still Living Hx Family Cardiac Disorders: Yes Hx Family Respiratory Disorders: No Hx Family Cancer: Yes Hx Family Endocrine Disorder: No Brother Family Member Ethnicity: Non- Living Status: Still Living Hx Family Cardiac Disorders: Yes (Brain aneurysm) Hx Family Respiratory Disorders: Yes (COPD) Internal Medicine - H&P: Meds Gabapentin [Neurontin] 800 mg PO Q4H 09/19/16 [History] Lisinopril [Zestril] 10 mg PO BID 09/19/16 [History] OxyCODONE/APAP 5/325 [Percocet 5/325 MG] 1 tab PO Q6-8H PRN 09/19/16 [History] Cyclobenzaprine [Flexeril] 10 mg PO TID PRN 07/31/17 [History] Spironolactone [Aldactone] 25 mg PO BID 07/31/17 [History] Cetirizine HCl [Zyrtec] 10 mg PO DAILY 02/09/18 [History] Montelukast [Singulair] 10 mg PO HS 02/09/18 [History] Ranitidine HCl [Zantac] 300 mg PO HS 02/09/18 [History] Tramadol HCl [Ultram] 100 mg PO QID PRN 02/09/18 [History] 3 Allergy/AdvReac Type Severity Reaction Status Date / Time atorvastatin [From Lipitor] AdvReac Muscle Pain Verified 02/09/18 09:44 Cortisone AdvReac Vomiting Verified 02/09/18 09:44 latex AdvReac Itching Verified 02/09/18 09:44 metformin AdvReac Diarrhea Verified 02/09/18 09:44 vancomycin AdvReac Itching Verified 02/09/18 09:44 All Systems PM: A 10-system review of systems was performed and is negative for pertinent findings except as documented above in the HPI. - Constitutional Constitutional: chills, fever(s), no night sweats - EENT Eyes: no change in vision, no discharge, no pain, no photophobia Ears: no ear discharge, no ear pain, no tinnitus Nose, mouth and throat: no dysphagia, no nasal discharge, no neck pain, no sore throat - Cardiovascular Cardiovascular ROS IM: no chest pain, no diaphoresis, no dyspnea, no lightheadedness, no palpitations, no syncope - Respiratory Respiratory: cough, dyspnea, no wheezing, no excessive phlegm production - Gastrointestinal Gastrointestinal: no abdominal pain, no diarrhea, no hematemesis, no hematochezia, no melena, no nausea, no vomiting - Genitourinary Genitourinary: no change in urinary stream, no dysuria, no flank pain, no hematuria - Musculoskeletal Musculoskeletal ROS IM: no numbness, no tingling - Integumentary Integumentary IM: no rash, no unusual bruising - Neurological Neurological ROS: no confusion, no convulsions, no focal weakness, no numbness, no tingling, no tremor(s) - Hematologic/Lymphatic Hematologic/Lymphatic: no easy bruising - Constitutional Vitals: Temp Pulse Resp BP Pulse Ox 98 F 105 16 156/79 92 02/09/18 16:33 02/09/18 16:33 02/09/18 16:33 02/09/18 16:33 08/28/18 16:33 Exam: Gen - Awake, alert, oriented x 3, no acute distress HEENT - NCAT, PERRLA, EOMI, hearing grossly intact, oropharynx benign CV - RRR, normal S1 and S2, no M/R/G, no BLE edema Resp - Chest tightness, poor air entry GI - Soft, NT/ND, no masses, normal bowel sounds, Skin - Warm, dry, no rashes/lesions/ulcers Psych - Normal mood and affect, no depression or anxiety - Head Head exam: Present: atraumatic, normocephalic - Eye Eye exam: Present: PERRL, conjuntiva pink, sclera anicteric Pupils: Present: PERRL - Neck Neck exam general surgery: Present: supple, trachea midline. Absent: lymphadenopathy - Respiratory Respiratory exam: Present: tachypnea. Absent: accessory muscle use, rales, rhonchi, wheezes Additional comments: poor air entry bilaterally, chest tightness - Cardiovascular Cardiovascular exam: Present: RRR, +S1, +S2. Absent: diastolic murmur, gallop, rubs, systolic murmur - GI/Abdominal GI/Abdominal exam: Present: normal bowel sounds, soft, no peritoneal signs. Absent: distended, tenderness - Extremities Exam Extremities exam: Present: warm, radial pulses palpable and symmetrical. Absent : calf tenderness, cyanotic, pedal edema - Neurological Exam Neurological exam: Present: CN II-XII intact, oriented X3, no focal deficits. Absent: pronater drift, facial droop, speech deficit - Skin Skin exam: Present: dry, intact Internal Med - H&P Results - Labs CBC & Chem 7: 02/08/18 21:55 02/08/18 21:55 - Impressions ITS Impressions Chest CTA 02/09/18 22:33 IMPRESSION: Negative for acute pulmonary embolism. Fluctuating upper lobe predominant peribronchovascular ground-glass opacities dating back through at least 2012. Differential considerations include pneumonia-including atypical and viral processes, respiratory bronchiolitis in a smoker, drug reaction, atypical pulmonary edema and less likely hemorrhage. Mild diffuse airway inflammation may be seen with asthma, bronchitis or smoking. Hepatic steatosis. D/ / Imer Lara / Imer Lara Interpreting Provider: Imer Lara - Assessment and plan (1) Acute respiratory failure with hypoxia and hypercapnia Current Visit: Yes Status: Acute Assessment and plan: Pt has acute hypoxic and hypercapneic respiratory failure [facility] 2/2 to acute COPD exacerbation. Patient was hypoxic to 76% on room air on arrival. CT angio was negative for PE Started on BIPAP, round the clock nebs and antibiotics. Will monitor resp status with serial ABGs (2) Acute exacerbation of chronic obstructive airways disease Current Visit: Yes Status: Acute Assessment and plan: See #1. On nebs, steroids and antibiotics (3) Diabetes Current Visit: No Status: Chronic Assessment and plan: Continue insulin. Monitor fingersticks Qualifiers: Diabetes mellitus type: type 2 Diabetes mellitus residential insulin use: without meterman use Diabetes mellitus complication status: with unspecified complications Qualified Code(s): E11.8 - Type 2 diabetes mellitus with unspecified complications (4) Lumbar radicular pain Current Visit: No Status: Chronic Assessment and plan: Continue home meds with gabapentin and percocet (5) HTN (hypertension) Current Visit: No Status: Chronic Assessment and plan: continue home meds Qualifiers: Hypertension type: essential hypertension Qualified Code(s): I10 - Essential (primary) hypertension (6) DVT prophylaxis Current Visit: No Status: Acute Assessment and plan: Heparin sc - Time Spent With Patient Total time spent is greater than 50% in coordination of care (as documented) at patient's floor/unit and/or counseling patient:
[2018-02-09] MEDS: *HR* Heparin 5,000 UNIT/ML VIAL SQ SCH (17:44)
[2018-02-09] MEDS ORDERED: Levofloxacin 750 MG/150 ML 750 MG/150 ML BAG IVPB SCH (21:00)
[2018-02-09] MEDS: Spironolactone 25 MG TABLET PO SCH (21:54)
[2018-02-09] MEDS: Famotidine 20 MG TABLET PO SCH (21:55)
[2018-02-10] MEDS: methylPREDNISolone 125 MG/2 ML VIAL IVP SCH ×3 (01:00→17:09)
[2018-02-10] MEDS: Ipratropium/Albuterol Neb 3 ML IH SCH ×6 (04:16→23:25)
[2018-02-10] MEDS: *HR* Heparin 5,000 UNIT/ML VIAL SQ SCH ×2 (05:29→17:20)
[2018-02-10] MEDS: Levofloxacin 750 MG/150 ML 750 MG/150 ML BAG IVPB SCH (05:30)
[2018-02-10 06:57] LABS: Basophils % 0.1 %; Hematocrit 48.5 % (35.3-44.9); Hemoglobin 16.3 g/dL (11.5-15.4); Immature Granulocytes % 0.5 % (0-4); Lymphocytes # 0.6 K/mcL (0.6-4.6); Lymphocytes % 6.1 %; Mean Corpuscular HGB Conc 33.6 g/dL (31.6-35.5); Mean Corpuscular Hemoglobin 30.5 pg (28.0-33.3); Mean Corpuscular Volume 90.8 fL (83.0-100.0); Mean Platelet Volume 9.3 fL (9.4-12.4); Monocytes # 0.2 K/mcL (0.0-1.3); Monocytes % 2.4 %; Platelet Count 184 K/mcL (140-400); Red Blood Count 5.34 M/mcL (3.82-4.97); Red Cell Distribution Width 14.2 % (11.5-14.5); Segmented Neutrophils % 90.9 %
[2018-02-10 07:14] LABS: BUN/Creatinine Ratio 26 (6-26); Blood Urea Nitrogen 15 mg/dL (6-20); Calcium 9.1 mg/dL (8.6-10.3); Carbon Dioxide 29 mEq/L (23-29); Chloride 103 mEq/L (98-107); Glucose 272 mg/dL (70-105); Magnesium 2.3 mg/dL (1.6-2.6); Osmolality,Calculated 292 (280-300); Phosphorous 3.1 mg/dL (2.7-4.5); Potassium 4.2 mEq/L (3.5-5.1); Sodium 136 mEq/L (136-145); eGFR For Non-African Americans > 60 (> 60)
[2018-02-10] MEDS: Budesonide/Formoterol 160/4.5 1 PUFF INH IH SCH ×2 (07:28→19:46)
[2018-02-10] MEDS: Spironolactone 25 MG TABLET PO SCH ×2 (08:25→22:04)
[2018-02-10] MEDS: Gabapentin 400 MG CAPSULE PO SCH ×4 (08:26→22:05)
[2018-02-10] MEDS: Insulin LISPRO 300 UNITS/3 ML VIAL SQ SCH ×4 (08:28→22:05)
--- NOTE | 2018-02-10 08:37 | Electrocardiograph Report ---
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
--- NOTE | 2018-02-10 10:24 | Internal Med Progress Note ---
Hospitalist Progress Note - Encounter Date of Encounter: 02/10/18 Time of Encounter: 10:20 - Subjective Interval History: No acute events overnight - Exam Vitals: Temp Pulse Resp BP Pulse Ox 97.9 F 88 18 139/83 92 02/10/18 07:50 02/10/18 07:50 02/10/18 07:50 02/10/18 07:50 02/10/18 07:50 Exam: Gen - Awake, alert, oriented x 3, no acute distress HEENT - NCAT, PERRLA, EOMI, hearing grossly intact, oropharynx benign CV - RRR, normal S1 and S2, no M/R/G, no BLE edema Resp - Chest tightness, poor air entry GI - Soft, NT/ND, no masses, normal bowel sounds, Skin - Warm, dry, no rashes/lesions/ulcers Psych - Normal mood and affect, no depression or anxiety - Assessment and Plan (1) Acute respiratory failure with hypoxia and hypercapnia Current Visit: Yes Status: Acute Assessment and Plan: Pt has acute hypoxic and hypercapneic respiratory failure [facility] / to acute COPD exacerbation. Patient was hypoxic to 76% on room air on arrival. CT angio was negative for PE Started on BIPAP, round the clock nebs and antibiotics. Will monitor resp status with serial ABGs 02/10. Improving this am . Cotninue nebs and steroids (2) Acute exacerbation of chronic obstructive airways disease Current Visit: Yes Status: Acute Assessment and Plan: See #1. On nebs, steroids and antibiotics (3) Diabetes Current Visit: No Status: Chronic Assessment and Plan: Continue insulin. Monitor fingersticks (4) Lumbar radicular pain Current Visit: No Status: Chronic Assessment and Plan: Continue home meds with gabapentin and percocet (5) HTN (hypertension) Current Visit: No Status: Chronic Assessment and Plan: continue home meds (6) DVT prophylaxis Current Visit: No Status: Acute Assessment and Plan: Heparin sc - Time Spent with Patient Total time spent is greater than 50% in coordination of care (as documented) at patient's floor/unit and/or counseling patient: Internal Medicine: Result - Labs CBC & Chem 7: 02/10/18 06:45 02/10/18 06:45 Labs: Short CBC 02/10/18 Range/Units 06:45 WBC 9.9 (4.3-11.1) K/mcL Hgb 16.3 H (11.5-15.4) g/dL Hct 48.5 H (35.3-44.9) % Plt Count 184 (140-400) K/mcL Neutrophils # 9.0 H (1.6-8.9) K/mcL [facility] 02/10/18 06:45 Sodium 136 Potassium 4.2 Chloride 103 Carbon Dioxide 29 BUN 15 Creatinine 0.58 L Glucose 272 H Calcium 9.1 Consult Discharge Plan - Plan Referrals: Mary Jo Estrada MD [Primary Care Provider] - (3) Diabetes Qualifiers: Diabetes mellitus type: type 2 Diabetes mellitus prison insulin use: without sales attendant use Diabetes mellitus complication status: with unspecified complications Qualified Code(s): E11.8 - Type 2 diabetes mellitus with unspecified complications (5) HTN (hypertension) Qualifiers: Hypertension type: essential hypertension Qualified Code(s): I10 - Essential (primary) hypertension
[2018-02-10] MEDS: *HR* OxyCODONE/APAP 5/325 TABLET PO PRN ×2 (12:16→20:01)
[2018-02-10] MEDS: Famotidine 20 MG TABLET PO SCH (22:04)
[2018-02-11] MEDS: methylPREDNISolone 125 MG/2 ML VIAL IVP SCH ×2 (00:08→09:50)
[2018-02-11] MEDS: Ipratropium/Albuterol Neb 3 ML IH SCH ×6 (03:54→23:23)
[2018-02-11 04:10] LABS: Basophils % 0.1 %; Hematocrit 43.8 % (35.3-44.9); Immature Granulocytes % 0.5 % (0-4); Lymphocytes # 0.7 K/mcL (0.6-4.6); Lymphocytes % 4.9 %; Mean Corpuscular HGB Conc 32.6 g/dL (31.6-35.5); Mean Corpuscular Volume 91.8 fL (83.0-100.0); Mean Platelet Volume 9.8 fL (9.4-12.4); Monocytes # 0.4 K/mcL (0.0-1.3); Monocytes % 3.2 %; Neutrophils # 12.4 K/mcL (1.6-8.9); Platelet Count 212 K/mcL (140-400); Red Blood Count 4.77 M/mcL (3.82-4.97); Red Cell Distribution Width 14.4 % (11.5-14.5); Segmented Neutrophils % 91.3 %
[2018-02-11 04:11] LABS: Hemoglobin 14.3 g/dL (11.5-15.4)
[2018-02-11 04:29] LABS: BUN/Creatinine Ratio 38 (6-26); Blood Urea Nitrogen 24 mg/dL (6-20); Calcium 9.1 mg/dL (8.6-10.3); Carbon Dioxide 27 mEq/L (23-29); Chloride 100 mEq/L (98-107); Glucose 347 mg/dL (70-105); Magnesium 2.3 mg/dL (1.6-2.6); Osmolality,Calculated 296 (280-300); Phosphorous 3.1 mg/dL (2.7-4.5); Potassium 4.5 mEq/L (3.5-5.1); Sodium 134 mEq/L (136-145); eGFR For Non-African Americans > 60 (> 60)
[2018-02-11] MEDS: Levofloxacin 750 MG/150 ML 750 MG/150 ML BAG IVPB SCH (06:14)
[2018-02-11] MEDS: *HR* Heparin 5,000 UNIT/ML VIAL SQ SCH ×2 (06:15→16:36)
--- NOTE | 2018-02-11 08:10 | Internal Med Progress Note ---
Hospitalist Progress Note - Encounter Date of Encounter: 02/11/18 Time of Encounter: 08:00 - Subjective Interval History: No acute events overnight - Exam Vitals: Temp Pulse Resp BP Pulse Ox 97.7 F 80 16 157/80 97 02/11/18 07:14 02/11/18 07:14 02/11/18 07:14 02/11/18 07:14 02/11/18 07:14 Exam: Gen - Awake, alert, oriented x 3, no acute distress HEENT - NCAT, PERRLA, EOMI, hearing grossly intact, oropharynx benign CV - RRR, normal S1 and S2, no M/R/G, no BLE edema Resp - Chest tightness, poor air entry GI - Soft, NT/ND, no masses, normal bowel sounds, Skin - Warm, dry, no rashes/lesions/ulcers Psych - Normal mood and affect, no depression or anxiety - Assessment and Plan (1) Acute respiratory failure with hypoxia and hypercapnia Current Visit: Yes Status: Acute Assessment and Plan: Pt has acute hypoxic and hypercapneic respiratory failure [facility] / to acute COPD exacerbation. Patient was hypoxic to 76% on room air on arrival. CT angio was negative for PE Started on BIPAP, round the clock nebs and antibiotics. Will monitor resp status with serial ABGs 02/11. Improving this am . Continue nebs and steroids. Will taper down dose of IV steroids gradually (2) Acute exacerbation of chronic obstructive airways disease Current Visit: Yes Status: Acute Assessment and Plan: See #1. On nebs, steroids and antibiotics (3) Diabetes Current Visit: No Status: Chronic Assessment and Plan: Continue insulin. Monitor fingersticks (4) Lumbar radicular pain Current Visit: No Status: Chronic Assessment and Plan: Continue home meds with gabapentin and percocet (5) HTN (hypertension) Current Visit: No Status: Chronic Assessment and Plan: continue home meds (6) DVT prophylaxis Current Visit: No Status: Acute Assessment and Plan: Heparin sc - Time Spent with Patient Total time spent is greater than 50% in coordination of care (as documented) at patient's floor/unit and/or counseling patient: Internal Medicine: Result - Labs CBC & Chem 7: 02/11/18 03:05 02/11/18 03:05 Labs: Short CBC 02/11/18 Range/Units 03:05 WBC 13.6 H (4.3-11.1) K/mcL Hgb 14.3 D (11.5-15.4) g/dL Hct 43.8 (35.3-44.9) % Plt Count 212 (140-400) K/mcL Neutrophils # 12.4 H (1.6-8.9) K/mcL BMP 02/11/18 03:05 Sodium 134 L Potassium 4.5 Chloride 100 Carbon Dioxide 27 BUN 24 H Creatinine 0.64 Glucose 347 H Calcium 9.1 Consult Discharge Plan - Plan Referrals: Mary Jo Estrada MD [Primary Care Provider] - (3) Diabetes Qualifiers: Diabetes mellitus type: type 2 Diabetes mellitus statistical financial analyst insulin use: without statistical financial analyst use Diabetes mellitus complication status: with unspecified complications Qualified Code(s): E11.8 - Type 2 diabetes mellitus with unspecified complications (5) HTN (hypertension) Qualifiers: Hypertension type: essential hypertension Qualified Code(s): I10 - Essential (primary) hypertension
[2018-02-11] MEDS: Insulin LISPRO 300 UNITS/3 ML VIAL SQ SCH ×3 (08:38→16:37)
[2018-02-11] MEDS: Gabapentin 400 MG CAPSULE PO SCH ×4 (08:39→21:06)
[2018-02-11] MEDS: Spironolactone 25 MG TABLET PO SCH ×2 (08:39→21:06)
[2018-02-11] MEDS: *HR* OxyCODONE/APAP 5/325 TABLET PO PRN ×2 (08:42→21:09)
[2018-02-11] MEDS: MethylPREDNISolone 40 MG/ML VIAL IVP SCH ×2 (08:50→16:36)
[2018-02-11] MEDS: Budesonide/Formoterol 160/4.5 1 PUFF INH IH SCH ×2 (11:06→20:10)
[2018-02-11] MEDS ORDERED: Insulin LISPRO 300 UNITS/3 ML VIAL SQ SCH (21:00)
[2018-02-11] MEDS: Famotidine 20 MG TABLET PO SCH (21:06)
[2018-02-12] MEDS: Ipratropium/Albuterol Neb 3 ML IH SCH ×3 (03:43→11:45)
[2018-02-12 04:30] LABS: Basophils % 0.1 %; Hematocrit 42.3 % (35.3-44.9); Immature Granulocytes % 1.2 % (0-4); Lymphocytes # 1.2 K/mcL (0.6-4.6); Lymphocytes % 11.4 %; Mean Corpuscular HGB Conc 33.1 g/dL (31.6-35.5); Mean Corpuscular Hemoglobin 29.9 pg (28.0-33.3); Mean Corpuscular Volume 90.2 fL (83.0-100.0); Mean Platelet Volume 9.5 fL (9.4-12.4); Monocytes # 0.6 K/mcL (0.0-1.3); Monocytes % 6.3 %; Neutrophils # 8.2 K/mcL (1.6-8.9); Platelet Count 181 K/mcL (140-400); Red Blood Count 4.69 M/mcL (3.82-4.97); Red Cell Distribution Width 14.4 % (11.5-14.5)
[2018-02-12 04:49] LABS: BUN/Creatinine Ratio 37 (6-26); Blood Urea Nitrogen 24 mg/dL (6-20); Carbon Dioxide 27 mEq/L (23-29); Chloride 101 mEq/L (98-107); Glucose 327 mg/dL (70-105); Magnesium 2.1 mg/dL (1.6-2.6); Osmolality,Calculated 297 (280-300); Phosphorous 3.6 mg/dL (2.7-4.5); Potassium 4.1 mEq/L (3.5-5.1); Sodium 135 mEq/L (136-145); eGFR For Non-African Americans > 60 (> 60)
[2018-02-12] MEDS: MethylPREDNISolone 40 MG/ML VIAL IVP SCH (06:00)
[2018-02-12] MEDS: Levofloxacin 750 MG/150 ML 750 MG/150 ML BAG IVPB SCH (06:00)
[2018-02-12] MEDS: *HR* Heparin 5,000 UNIT/ML VIAL SQ SCH (06:00)
[2018-02-12] MEDS: Budesonide/Formoterol 160/4.5 1 PUFF INH IH SCH (07:48)
[2018-02-12] MEDS: Insulin LISPRO 300 UNITS/3 ML VIAL SQ SCH ×2 (08:36→12:02)
[2018-02-12] MEDS: Gabapentin 400 MG CAPSULE PO SCH (08:39)
[2018-02-12] MEDS: Spironolactone 25 MG TABLET PO SCH (08:42)
--- NOTE | 2018-02-12 08:49 | Discharge Summary ---
Orders not resulted at time of discharge: Pending orders 02/13/18 04:00 Basic Metabolic Panel AM 0400 CBC [Complete Blood Count] [HEME] AM 0400 Magnesium AM 0400 Phosphorous AM 0400 02/14/18 04:00 Basic Metabolic Panel AM 0400 CBC [Complete Blood Count] [HEME] AM 0400 Magnesium AM 0400 Phosphorous AM 0400 02/15/18 04:00 Basic Metabolic Panel AM 0400 CBC [Complete Blood Count] [HEME] AM 0400 Magnesium AM 0400 Phosphorous AM 0400 02/16/18 04:00 Basic Metabolic Panel AM 0400 CBC [Complete Blood Count] [HEME] AM 0400 Magnesium AM 0400 Phosphorous AM 0400 Date of Encounter: 02/12/18 Time of Encounter: 08:40 - Discharge Diagnosis (1) Acute respiratory failure with hypoxia and hypercapnia Priority: Primary Status: Acute Assessment and Plan: 52 year old female with pmh of COPD, tobacco abuse , chronic back pain presenting with complaints of shortness of breath and decreased exercise tolerance starting since thursday. Symptoms have been accompanied with a worsened cough which has been productive of yellow phlegm. She also complained of subjective fevers and chills. In the ER, she was noted to be saturating at 76 % on room air. She had a CT angio chest done which came back negative for PE. She was assessed with acute hypoxic and hypercapneic respiratory failure likely 2/2 to acute COPD exacerbation. Patient was hypoxic to 76% on room air on arrival with scattered wheezes on exam. She was started on BIPAP, round the clock nebs and antibiotics. She made a gradual improvement with reduction in the frequency of her wheezing and coughing and improvement of her oxygen saturation. She was gradually weaned off supplemental oxygen and was saturating above 93% on room air on the day of discharge. She also had a 6 minute walk test done showing she doesn't need home oxygen. She was discharged on inhalers and counseled to follow up with pulmonary (2) Acute exacerbation of chronic obstructive airways disease Priority: Primary Status: Acute (3) Diabetes Priority: Secondary Status: Chronic Qualifiers: Diabetes mellitus type: type 2 Diabetes mellitus level vial inside grinder insulin use: without fdc use Diabetes mellitus complication status: with unspecified complications Qualified Code(s): E11.8 - Type 2 diabetes mellitus with unspecified complications (4) Lumbar radicular pain Priority: Secondary Status: Chronic (5) HTN (hypertension) Priority: Secondary Status: Chronic Qualifiers: Hypertension type: essential hypertension Qualified Code(s): I10 - Essential (primary) hypertension (6) DVT prophylaxis Priority: Secondary Status: Acute Hospital course: Ms. Cabrera is a 52 year old female - Time Spent with Patient Total time spent providing and/or coordinating discharge services: - Discharge Medications Prescriptions: Budesonide/Formoterol 160/4.5 [Symbicort 160/4.5] 2 puff IH BIDR 30 Days #30 hfa.aer.ad Ipratropium/Albuterol Sulfate [Combivent Respimat Inhal Barn[place]] 4 gm IH Q6H 30 Days #30 mist.inhal levoFLOXacin [Levaquin] 750 mg PO DAILY #3 tablet predniSONE [PredniSONE] 40 mg PO DAILY 5 Days #10 tablet Home Medications: Gabapentin [Neurontin] 800 mg PO Q4H 09/19/16 [History] Lisinopril [Zestril] 10 mg PO BID 09/19/16 [History] OxyCODONE/APAP 5/325 [Percocet 5/325 MG] 1 tab PO Q6-8H PRN 09/19/16 [History] Cyclobenzaprine [Flexeril] 10 mg PO TID PRN 07/31/17 [History] Spironolactone [Aldactone] 25 mg PO BID 07/31/17 [History] Cetirizine HCl [Zyrtec] 10 mg PO DAILY 02/09/18 [History] Montelukast [Singulair] 10 mg PO HS 02/09/18 [History] Ranitidine HCl [Zantac] 300 mg PO HS 02/09/18 [History] Tramadol HCl [Ultram] 100 mg PO QID PRN 02/09/18 [History] Budesonide/Formoterol 160/4.5 [Symbicort 160/4.5] 2 puff IH BIDR 30 Days #30 hfa.aer.ad 02/12/18 [Rx] Ipratropium/Albuterol Sulfate [Combivent Respimat Inhal Barnard] 4 gm IH Q6H 30 Days #30 mist.inhal 02/12/18 [Rx] levoFLOXacin [Levaquin] 750 mg PO DAILY #3 tablet 02/12/18 [Rx] predniSONE [PredniSONE] 40 mg PO DAILY 5 Days #10 tablet 02/12/18 [Rx] Allergies/Adverse Reactions: 3 Allergy/AdvReac Type Severity Reaction Status Date / Time atorvastatin [From Lipitor] AdvReac Muscle Pain Verified 02/09/18 09:44 Cortisone AdvReac Vomiting Verified 02/09/18 09:44 latex AdvReac Itching Verified 02/09/18 09:44 metformin AdvReac Diarrhea Verified 02/09/18 09:44 vancomycin AdvReac Itching Verified 02/09/18 09:44 Date of admission: 02/09/18 12:08 Primary care physician: Mary Jo Estrada MD - Constitutional Vitals: Temp Pulse Resp BP Pulse Ox 97.8 F 92 20 163/77 91 02/12/18 07:11 02/12/18 07:11 02/12/18 04:30 02/12/18 07:11 02/12/18 04:30 Exam: comfortable - Head Head exam: Present: atraumatic, normocephalic - Eye Eye exam: Present: PERRL, conjuntiva pink, sclera anicteric Pupils: Present: PERRL - Neck Neck exam general surgery: Present: supple, trachea midline. Absent: lymphadenopathy - Respiratory Respiratory exam: Present: CTAB. Absent: accessory muscle use, rales, rhonchi, wheezes - Cardiovascular Cardiovascular exam: Present: RRR, +S1, +S2. Absent: diastolic murmur, gallop, rubs, systolic murmur - GI/Abdominal GI/Abdominal exam: Present: normal bowel sounds, soft, no peritoneal signs. Absent: distended, tenderness - Extremities Exam Extremities exam: Present: warm, radial pulses palpable and symmetrical. Absent : calf tenderness, cyanotic, pedal edema - Neurological Exam Neurological exam: Present: CN II-XII intact, oriented X3, no focal deficits. Absent: pronater drift, facial droop, speech deficit - Skin Skin exam: Present: dry, intact - Patient Status Disposition: Home, Self-Care Condition: Fair - Discharge Instructions Instructions: Ipratropium (By breathing), Prednisone (By mouth), Levofloxacin ( By mouth), Budesonide (By breathing), Community-acquired Pneumonia (DC), Community-acquired Pneumonia (GEN), Community-Acquired Pneumonia, Aed Trainer (GEN) Follow Up With: Mary Jo Estrada MD [Primary Care Provider] - 02/23/18 9:15 am
[2018-02-12 11:36] VITALS: BP 165/87
[2018-02-13] MEDS ORDERED: levoFLOXacin 750 MG TABLET PO SCH (09:00)
== END 2018-02-12 12:52 | disposition home or self-care (01) | DRG 189 ==
LOC: EMEROOARM 21:41 → 2NENU 21:41 → SUATTDRO 02-09 01:19 → 2NENU 02-09 02:50
PROVIDERS: ADMIT Pediatrics; ATTEND Student in an Organized Health Care Education/Training Program

== ENCOUNTER 2019-04-21 19:52 | Observation (INO) ==
[2019-04-21 20:26] LABS: Basophils % 0.2 %; Eosinophils # 0.1 K/mcL (0.0-0.6); Eosinophils % 1.3 %; Hematocrit 46.5 % (35.3-44.9); Hemoglobin 16.5 g/dL (11.5-15.4); Immature Granulocytes % 0.8 % (0-4); Lymphocytes # 1.3 K/mcL (0.6-4.6); Lymphocytes % 13.8 %; Mean Corpuscular HGB Conc 35.5 g/dL (31.6-35.5); Mean Corpuscular Hemoglobin 31.2 pg (28.0-33.3); Mean Corpuscular Volume 87.9 fL (83.0-100.0); Mean Platelet Volume 9.6 fL (9.4-12.4); Monocytes # 0.6 K/mcL (0.0-1.3); Monocytes % 6.3 %; Neutrophils # 7.5 K/mcL (1.6-8.9); Platelet Count 200 K/mcL (140-400); Red Blood Count 5.29 M/mcL (3.82-4.97); Red Cell Distribution Width 14.2 % (11.5-14.5); Segmented Neutrophils % 77.6 %; White Blood Count 9.6 K/mcL (4.3-11.1)
[2019-04-21 20:47] LABS: BUN/Creatinine Ratio 19 (6-26); Blood Urea Nitrogen 12 mg/dL (6-20); Calcium 9.1 mg/dL (8.6-10.3); Carbon Dioxide 25 mEq/L (23-29); Chloride 98 mEq/L (98-107); Glucose 217 mg/dL (70-105); Osmolality,Calculated 284 (280-300); Potassium 3.9 mEq/L (3.5-5.1); Sodium 134 mEq/L (136-145); eGFR For African Americans > 60 (> 60); eGFR For Non-African Americans > 60 (> 60)
[2019-04-21 20:48] LABS: Troponin I < 0.03 ng/mL (< 0.04)
[2019-04-21 20:56] LABS: INR 1.1
[2019-04-21] MEDS ORDERED: Ipratropium/Albuterol Neb 3 ML IH ONE (21:30)
[2019-04-21] MEDS ORDERED: Ipratropium/Albuterol Neb 3 ML IH STA (23:49)
[2019-04-22] MEDS ORDERED: Isovue-370 500 ML BOTTLE IVP ONE (00:46)
[2019-04-22] MEDS ORDERED: GuaiFENesin Liq 200 MG/10 ML UDC PO PRN (00:47)
[2019-04-22] MEDS ORDERED: Acetaminophen 325 MG TABLET PO PRN (00:47)
[2019-04-22] MEDS ORDERED: Ondansetron 4 MG/2 ML VIAL IVP PRN (00:47)
[2019-04-22] MEDS ORDERED: Dextrose Gel 15 GM/37.5 ML TUBE PO PRN ×2 (00:48)
[2019-04-22] MEDS ORDERED: *HR* Dextrose 50 % in Water (Syg) 50 ML SYRINGE IVP PRN (00:48)
[2019-04-22] MEDS ORDERED: Insulin DETEMIR 100 UNIT/ML X5UNITS SQ ONE (00:49)
[2019-04-22] MEDS ORDERED: Ringers Solution, Lactated 1,000 ML IVC SCH (01:00)
[2019-04-22] MEDS: MethylPREDNISolone 40 MG/ML VIAL IVP SCH ×2 (02:40→10:05)
[2019-04-22] MEDS ORDERED: traMADol 50 MG TABLET PO PRN (03:24)
[2019-04-22] MEDS ORDERED: *HR* OxyCODONE/APAP 5/325 TABLET PO PRN (03:24)
[2019-04-22] MEDS: Ipratropium/Albuterol Neb 3 ML IH SCH ×5 (03:42→20:20)
[2019-04-22] MEDS: *HR* Heparin 5,000 UNIT/ML VIAL SQ SCH ×2 (05:48→14:25)
[2019-04-22 06:33] LABS: VBG HCO3 31 mEq/L (21-27); VBG PCO2 53 mmHg (41-51); VBG PH 7.38 pH Units (7.32-7.42); VBG PO2 112 mmHg (25-50)
[2019-04-22] MEDS ORDERED: Nicotine 21 MG PATCH.TD24 TD SCH (09:30)
[2019-04-22] MEDS: Insulin LISPRO 300 UNITS/3 ML VIAL SQ SCH ×3 (09:59→17:05)
[2019-04-22 13:17] LABS: Adenovirus Not Detected (Not Detect); Bordetella Pertussis Not Detected (Not Detect); Chlamydophila pneumoniae Not Detected (Not Detect); Coronavirus 229E Not Detected (Not Detect); Coronavirus HKU1 Not Detected (Not Detect); Coronavirus NL63 Not Detected (Not Detect); Coronavirus OC43 Not Detected (Not Detect); Human Metapneumovirus Not Detected (Not Detect); Human Rhinovirus/Enterovirus DETECTED (Not Detect); Influenza A Subtype 2009 H1 Not Detected (Not Detect); Influenza A Untypeable Not Detected (Not Detect); Influenza B Not Detected (Not Detect); Mycoplasma pneumoniae Not Detected (Not Detect); Parainfluenza Virus 1 Not Detected (Not Detect); Parainfluenza Virus 2 Not Detected (Not Detect); Parainfluenza Virus 3 Not Detected (Not Detect); Parainfluenza Virus 4 Not Detected (Not Detect); Respiratory Syncytial Virus Not Detected (Not Detect)
[2019-04-22 15:10] LABS: Estimated Average Glucose 240 mg/dl
[2019-04-22 19:34] VITALS: BP 133/77
[2019-04-22] MEDS ORDERED: Insulin DETEMIR 100 UNIT/ML X5UNITS SQ SCH (21:00)
[2019-04-22] MEDS ORDERED: Insulin LISPRO 300 UNITS/3 ML VIAL SQ SCH (21:00)
[2019-04-23] MEDS ORDERED: predniSONE 20 MG TABLET PO SCH (09:00)
== END 2019-04-22 20:12 | disposition left against medical advice (07) ==
LOC: 3ANU 19:52 → EMEROOARM 19:52 → 3ANU 04-22 00:39
PROVIDERS: ADMIT Internal Medicine; ATTEND Internal Medicine

== ENCOUNTER 2019-04-24 13:54 | Observation (INO) ==
[2019-04-24] MEDS ORDERED: Ipratropium/Albuterol Neb 3 ML IH ONE (14:09)
[2019-04-24] MEDS ORDERED: methylPREDNISolone 125 MG/2 ML VIAL IVP ONE (14:09)
[2019-04-24 14:32] LABS: Basophils % 0.3 %; Eosinophils # 0.1 K/mcL (0.0-0.6); Eosinophils % 1.1 %; Hematocrit 46.4 % (35.3-44.9); Immature Granulocytes % 0.7 % (0-4); Lymphocytes % 17.6 %; Mean Corpuscular HGB Conc 34.5 g/dL (31.6-35.5); Mean Corpuscular Hemoglobin 30.8 pg (28.0-33.3); Mean Corpuscular Volume 89.4 fL (83.0-100.0); Mean Platelet Volume 9.5 fL (9.4-12.4); Monocytes # 0.8 K/mcL (0.0-1.3); Monocytes % 6.9 %; Neutrophils # 8.2 K/mcL (1.6-8.9); Platelet Count 211 K/mcL (140-400); Red Blood Count 5.19 M/mcL (3.82-4.97); Red Cell Distribution Width 14.2 % (11.5-14.5); Segmented Neutrophils % 73.4 %; White Blood Count 11.2 K/mcL (4.3-11.1)
[2019-04-24 14:36] LABS: VBG HCO3 31 mEq/L (21-27); VBG PCO2 53 mmHg (41-51); VBG PH 7.37 pH Units (7.32-7.42); VBG PO2 62 mmHg (25-50)
[2019-04-24 14:38] LABS: Activated Partial Thrombo Time 29.7 Seconds (26.0-36.0); INR 1.1; Prothrombin Time 12.2 Seconds (9.4-12.1)
[2019-04-24 14:54] LABS: BUN/Creatinine Ratio 23 (6-26); Blood Urea Nitrogen 15 mg/dL (6-20); Calcium 9.2 mg/dL (8.6-10.3); Carbon Dioxide 30 mEq/L (23-29); Chloride 97 mEq/L (98-107); Glucose 204 mg/dL (70-105); Magnesium 1.8 mg/dL (1.6-2.6); Osmolality,Calculated 285 (280-300); Potassium 3.7 mEq/L (3.5-5.1); Sodium 134 mEq/L (136-145); eGFR For African Americans > 60 (> 60); eGFR For Non-African Americans > 60 (> 60)
[2019-04-24 14:55] LABS: Troponin I < 0.03 ng/mL (< 0.04)
[2019-04-24] MEDS ORDERED: Azithromycin 500 MG in 0.9 % Sodium Chloride 250 ML IVPB ONE (15:15)
[2019-04-24] MEDS ORDERED: Piperacillin/Tazobactam 3.375 GM in 0.9 % Sodium Chloride Mini Bag 100 ML IVPB ONE (15:15)
[2019-04-24] MEDS ORDERED: Naloxone 0.4 MG/ML INJ IVP PRN (16:32)
[2019-04-24] MEDS ORDERED: Ondansetron ODT 4 MG TAB.RAPDIS SL PRN (16:32)
[2019-04-24] MEDS ORDERED: Mag Hydrox/Al Hydrox/Simeth 30 ML UDC PO PRN (16:32)
[2019-04-24] MEDS ORDERED: Albuterol 2.5 MG/3 ML NEBULIZER IH PRN (16:34)
[2019-04-24] MEDS ORDERED: Acetaminophen 325 MG TABLET PO PRN (16:39)
[2019-04-24] MEDS ORDERED: Dextrose Gel 15 GM/37.5 ML TUBE PO PRN ×2 (17:05)
[2019-04-24] MEDS ORDERED: D5% in Water 1,000 ML IVC PRN (17:05)
[2019-04-24] MEDS ORDERED: *HR* Dextrose 50 % in Water (Syg) 50 ML SYRINGE IVP PRN (17:05)
[2019-04-24] MEDS: *HR* Heparin 5,000 UNIT/ML VIAL SQ SCH (17:54)
[2019-04-24] MEDS: Nicotine 21 MG PATCH.TD24 TD SCH (17:56)
[2019-04-24] MEDS: Ipratropium/Albuterol Neb 3 ML IH SCH ×2 (19:34→22:49)
[2019-04-24] MEDS: Spironolactone 25 MG TABLET PO SCH (19:45)
[2019-04-24] MEDS: Gabapentin 400 MG CAPSULE PO SCH (19:45)
[2019-04-24] MEDS: (Pravastatin Sodium [Pravachol] 40 MG) PO SCH (19:46)
[2019-04-24] MEDS: Cyanocobalamin (B-12) 1,000 MCG TABLET PO SCH (19:46)
[2019-04-24] MEDS: Insulin LISPRO 300 UNITS/3 ML VIAL SQ SCH (20:28)
[2019-04-24 20:33] LABS: Bilirubin,Urine Negative (Negative); Blood,Urine Negative (Negative); Clarity,Urine Clear (Clear); Color,Urine Yellow (Yellow); Glucose,Urine (UA) >=1000 mg/dL (Normal); Ketones,Urine 15 mg/dL (Negative); Leukocyte Esterase,Urine Negative (Negative); Nitrite,Urine Negative (Negative); Protein,Urine Negative (Neg-Trace); Specific Gravity,Urine 1.028 (1.010-1.025); Urobilinogen,Urine Normal (Normal)
[2019-04-24] MEDS: Budesonide/Formoterol 160/4.5 1 PUFF INH IH SCH (22:49)
[2019-04-25 01:42] LABS: Hematocrit 44.1 % (35.3-44.9); Hemoglobin 14.6 g/dL (11.5-15.4); Mean Corpuscular HGB Conc 33.1 g/dL (31.6-35.5); Mean Corpuscular Hemoglobin 31.1 pg (28.0-33.3); Mean Corpuscular Volume 93.8 fL (83.0-100.0); Mean Platelet Volume 9.7 fL (9.4-12.4); Platelet Count 201 K/mcL (140-400); Red Cell Distribution Width 13.7 % (11.5-14.5); White Blood Count 10.8 K/mcL (4.3-11.1)
[2019-04-25 02:01] LABS: BUN/Creatinine Ratio 26 (6-26); Blood Urea Nitrogen 18 mg/dL (6-20); Calcium 9.2 mg/dL (8.6-10.3); Carbon Dioxide 30 mEq/L (23-29); Chloride 98 mEq/L (98-107); Glucose 320 mg/dL (70-105); Osmolality,Calculated 290 (280-300); Potassium 4.3 mEq/L (3.5-5.1); Sodium 133 mEq/L (136-145); eGFR For African Americans > 60 (> 60); eGFR For Non-African Americans > 60 (> 60)
[2019-04-25] MEDS: Ipratropium/Albuterol Neb 3 ML IH SCH ×6 (04:29→23:14)
[2019-04-25] MEDS: *HR* Heparin 5,000 UNIT/ML VIAL SQ SCH ×2 (05:17→17:15)
[2019-04-25] MEDS: Budesonide/Formoterol 160/4.5 1 PUFF INH IH SCH ×2 (07:18→19:49)
[2019-04-25] MEDS: Nicotine 21 MG PATCH.TD24 TD SCH (08:33)
[2019-04-25] MEDS: Insulin LISPRO 300 UNITS/3 ML VIAL SQ SCH ×4 (08:33→20:37)
[2019-04-25] MEDS: Cyanocobalamin (B-12) 1,000 MCG TABLET PO SCH ×3 (08:33→20:38)
[2019-04-25] MEDS: levoFLOXacin 750 MG TABLET PO SCH (08:33)
[2019-04-25] MEDS: predniSONE 20 MG TABLET PO SCH (08:33)
[2019-04-25] MEDS: Spironolactone 25 MG TABLET PO SCH ×2 (08:34→20:39)
[2019-04-25] MEDS: Gabapentin 400 MG CAPSULE PO SCH ×3 (08:34→20:38)
[2019-04-25] MEDS: (Pravastatin Sodium [Pravachol] 40 MG) PO SCH (19:38)
[2019-04-25] MEDS: traMADol 50 MG TABLET PO PRN (20:38)
[2019-04-25] MEDS: Insulin DETEMIR 100 UNIT/ML X5UNITS SQ SCH (20:47)
[2019-04-26] MEDS: traMADol 50 MG TABLET PO PRN (04:15)
[2019-04-26] MEDS: Ipratropium/Albuterol Neb 3 ML IH SCH ×6 (04:19→23:54)
[2019-04-26] MEDS: *HR* Heparin 5,000 UNIT/ML VIAL SQ SCH ×2 (05:36→18:03)
[2019-04-26 06:38] LABS: Hematocrit 41.9 % (35.3-44.9); Mean Corpuscular HGB Conc 33.4 g/dL (31.6-35.5); Mean Corpuscular Hemoglobin 30.9 pg (28.0-33.3); Mean Corpuscular Volume 92.5 fL (83.0-100.0); Mean Platelet Volume 9.3 fL (9.4-12.4); Platelet Count 188 K/mcL (140-400); Red Blood Count 4.53 M/mcL (3.82-4.97); Red Cell Distribution Width 13.7 % (11.5-14.5); White Blood Count 10.3 K/mcL (4.3-11.1)
[2019-04-26 06:57] LABS: BUN/Creatinine Ratio 26 (6-26); Blood Urea Nitrogen 18 mg/dL (6-20); Calcium 8.8 mg/dL (8.6-10.3); Carbon Dioxide 32 mEq/L (23-29); Chloride 99 mEq/L (98-107); Glucose 214 mg/dL (70-105); Osmolality,Calculated 294 (280-300); Potassium 3.5 mEq/L (3.5-5.1); Sodium 138 mEq/L (136-145); eGFR For African Americans > 60 (> 60); eGFR For Non-African Americans > 60 (> 60)
[2019-04-26] MEDS: Budesonide/Formoterol 160/4.5 1 PUFF INH IH SCH ×2 (07:22→21:10)
[2019-04-26] MEDS: Insulin LISPRO 300 UNITS/3 ML VIAL SQ SCH ×4 (08:31→21:04)
[2019-04-26] MEDS: Nicotine 21 MG PATCH.TD24 TD SCH (08:34)
[2019-04-26] MEDS: Cyanocobalamin (B-12) 1,000 MCG TABLET PO SCH ×3 (08:34→21:04)
[2019-04-26] MEDS: levoFLOXacin 750 MG TABLET PO SCH (08:34)
[2019-04-26] MEDS: Gabapentin 400 MG CAPSULE PO SCH ×3 (08:34→21:04)
[2019-04-26] MEDS: Spironolactone 25 MG TABLET PO SCH ×2 (08:34→21:04)
[2019-04-26] MEDS: predniSONE 20 MG TABLET PO SCH (08:34)
[2019-04-26] MEDS: *HR* OxyCODONE/APAP 5/325 TABLET PO PRN ×2 (11:40→21:04)
[2019-04-26] MEDS: Insulin DETEMIR 100 UNIT/ML X5UNITS SQ SCH (21:05)
[2019-04-26] MEDS: (Pravastatin Sodium [Pravachol] 40 MG) PO SCH (21:37)
[2019-04-27] MEDS: Ipratropium/Albuterol Neb 3 ML IH SCH ×3 (03:33→11:21)
[2019-04-27] MEDS: *HR* OxyCODONE/APAP 5/325 TABLET PO PRN (05:28)
[2019-04-27] MEDS: *HR* Heparin 5,000 UNIT/ML VIAL SQ SCH (05:29)
[2019-04-27 06:03] LABS: Hematocrit 43.3 % (35.3-44.9); Hemoglobin 14.6 g/dL (11.5-15.4); Mean Corpuscular HGB Conc 33.7 g/dL (31.6-35.5); Mean Corpuscular Hemoglobin 30.7 pg (28.0-33.3); Mean Platelet Volume 9.8 fL (9.4-12.4); Platelet Count 210 K/mcL (140-400); Red Blood Count 4.76 M/mcL (3.82-4.97); Red Cell Distribution Width 13.7 % (11.5-14.5); White Blood Count 9.5 K/mcL (4.3-11.1)
[2019-04-27 06:25] LABS: BUN/Creatinine Ratio 24 (6-26); Blood Urea Nitrogen 16 mg/dL (6-20); Calcium 9.1 mg/dL (8.6-10.3); Carbon Dioxide 29 mEq/L (23-29); Chloride 100 mEq/L (98-107); Glucose 212 mg/dL (70-105); Osmolality,Calculated 295 (280-300); Potassium 3.6 mEq/L (3.5-5.1); Sodium 139 mEq/L (136-145); eGFR For African Americans > 60 (> 60); eGFR For Non-African Americans > 60 (> 60)
[2019-04-27] MEDS: Budesonide/Formoterol 160/4.5 1 PUFF INH IH SCH (07:03)
[2019-04-27] MEDS: Gabapentin 400 MG CAPSULE PO SCH (08:39)
[2019-04-27] MEDS: Cyanocobalamin (B-12) 1,000 MCG TABLET PO SCH (08:39)
[2019-04-27] MEDS: predniSONE 20 MG TABLET PO SCH (08:39)
[2019-04-27] MEDS: levoFLOXacin 750 MG TABLET PO SCH (08:39)
[2019-04-27] MEDS: Spironolactone 25 MG TABLET PO SCH (08:40)
[2019-04-27] MEDS: Nicotine 21 MG PATCH.TD24 TD SCH (08:40)
[2019-04-27] MEDS: Insulin LISPRO 300 UNITS/3 ML VIAL SQ SCH (08:42)
[2019-04-27 11:23] VITALS: BP 171/98
== END 2019-04-27 12:54 | disposition home or self-care (01) ==
LOC: 3BNU 13:54 → EMEROOARM 13:54 → SUATTDRO 16:07 → 3BNU 17:10
PROVIDERS: ADMIT Family Medicine; ATTEND Internal Medicine